=== PATIENT | female | born 1970 ===

== ENCOUNTER → 2020-10-17 08:55 | Outpatient (CLI) | payer BC, SELFPAY ==
--- NOTE | ~2020-10-17 | CT_ITS ---
EXAMINATION: CT abdomen pelvis w con INDICATION: Right lower quadrant pain and bloating TECHNIQUE: Computed tomographic images of the abdomen and pelvis were obtained after the administrati on of 100 cc of Omnipaque 350 intravenous contrast. The dose-length product (DLP) was 283.24 mGy-cm. Automated exposure control and iterative reconstruction technique were employed. COMPARISON: None available FINDINGS: The lung bases are clear. The heart size is normal. Cysts of the liver measure up to 1.6 cm in the right hepatic lobe. The spleen, pancreas, gallbladder, and adrenal glands are normal. Cysts o f the kidneys measure up to 7 mm on the right. Nonobstructing stones of the left kidney measure up to 2 mm. The appendix is normal. No pathologically enlarged abdominal or pelvic lymph nodes are identif ied. There is no free intraperitoneal gas or evidence of bowel obstruction. Focal areas of enhancemen t in the posterior uterine body likely reflect fibroids. A moderate volume of colonic stool is presen t. An IUD is present in the uterus in expected position. IMPRESSION: 1. No CT correlate for the patient's symptoms. Reviewed, dictated and finalized at location A.
== END ==
PROVIDERS: PCP Physician Assistant Medical; Visit Provider Physician Assistant Medical
DX: R10.9 Unspecified abdominal pain (principal)
CPT/HCPCS: 74177; Q9967